=== PATIENT | male | born 2000 | race Two or more races ===

== ENCOUNTER → 2024-11-02 | Outpatient (CLI) | payer OTHER, SELFPAY ==
--- NOTE | 2024-11-02 09:41 | XR_ITS ---
Examination: Lumbar spine, 5 views Technique: Lumbar spine AP, lateral, coned lateral lower lumbar spine, bilateral obliques 5 views Exam date and time: November 02, 2024 0944 hours INDICATIONS: Lifting injury to lower back one month ago lower back pain FINDINGS: Short angle lower lumbar levoscoliosis 11 degrees Mild diffuse facet arthropathy Grade 2 spondylolisthesis L5 on S1 with advanced degenerative disc disease at the L5-S1 level No lumbar fracture IMPRESSION: Advanced degenerative disc disease L5-S1 Grade 2 spondylolisthesis L5 on S1 produces severe spinal stenosis at this level
--- NOTE | 2024-11-02 09:41 | XR_ITS ---
Examination: Knee, left , 3 views Technique: Knee AP, lateral, oblique 3 views Date and time of exam: November 02, 2024 0944 hours INDICATIONS: Left knee pain one month. FINDINGS: Mild tricompartment osteoarthritis No fracture or dislocation No foreign body IMPRESSION: Mild tricompartment osteoarthritis
--- NOTE | 2024-11-02 09:41 | XR_ITS ---
Examination:Left hip AP, lateral, AP pelvis 3 views Technique: Hip AP lateral, AP pelvis, 3 views Exam date and time:November 02, 2024 0944 hours Comparison 01/12/2024 INDICATIONS: Left hip pain one month. FINDINGS: No left hip fracture or dislocation No significant hip joint narrowing Bones of the pelvis right hip intact IMPRESSION: No left hip fracture or dislocation No significant arthritic change.
== END | disposition home or self-care (01) ==
PROVIDERS: Referring Provider Family Medicine; Visit Provider Family Medicine
DX: M17.12 Unilateral primary osteoarthritis, left knee (principal); M51.370 Other intervertebral disc degeneration, lumbosacral region with discogenic back pain only; M43.17 Spondylolisthesis, lumbosacral region; M48.07 Spinal stenosis, lumbosacral region; S33.5XXD Sprain of ligaments of lumbar spine, subsequent encounter; S73.102D Unspecified sprain of left hip, subsequent encounter; S83.8X2D Sprain of other specified parts of left knee, subsequent encounter; X58.XXXD Exposure to other specified factors, subsequent encounter
CPT/HCPCS: 72110; 73502; 73562

== ENCOUNTER 2024-11-10 20:21 | Emergency (ER) | payer MEDICAID, SELFPAY ==
[2024-11-10 20:49] VITALS: PULSE 110; RESP 20; O2SAT 96; BMI 55.7
[2024-11-10 20:58] VITALS: BP 149/96; PULSE 87; RESP 20; TEMP 37; O2SAT 95
--- NOTE | 2024-11-10 20:59 | XR_ITS ---
Examination: PA chest single view Technique whereby PA chest single view Date and time: November 10, 2024 2104 hours INDICATIONS: Shortness of chest pain today. FINDINGS: Poor inspiratory effort. Normal heart size No pneumonia or pulmonary edema IMPRESSION: Poor inspiratory effort chest x-ray
--- NOTE | 2024-11-10 21:30 | PD.EDSOB ---
ED SOB =RME/HPI General Chief Complaint: Shortness of Breath/Dyspnea Stated Complaint: ANXIETY Time Seen by Provider: 11/10/24 20:56 Arrival date/time: 11/10/24 20:21 This is a case of 24-year-old male who came in in the emergency room due to palpitation after drinking coffee with mild shortness of breath due to the symptoms today patient had a panic attack thus decided to start consult here in the emergency room patient denies any suicidal or homicidal ideation denies any hallucination denies depression Limitations: no limitations Related Data Previous Rx's ?Medication ?Instructions ?Recorded meloxicam 7.5 mg tablet 7.5 mg PO QDAY #10 tabs 11/08/23 hydroxyzine pamoate 25 mg capsule 25 mg PO BID PRN anxiety #10 caps 11/10/24 Allergies Allergy/AdvReac Type Severity Reaction Status Date / Time No Known Allergies Allergy Verified 11/10/24 20:49 Review of Systems Review of Systems Systems Reviewed: All systems reviewed, normal except as documented Constitutional Constitutional: Reports system reviewed and no additional complaints, except as documented, Reports as per HPI and Denies snoring Cardiovascular Cardiovascular: Reports system reviewed and no additional complaints, except as documented, Reports as per HPI, Denies acrocyanosis, Denies chest pain, Denies chest pain at rest, Denies chest pain with activity, Denies claudication, Denies diaphoresis, Reports dyspnea, Denies dyspnea on exertion, Denies edema, Denies irregular heart rhythm, Denies leg edema, Denies leg ulcers, Denies lightheadedness, Denies orthopnea, Denies palpitations, Denies paroxysmal nocturnal dyspnea, Denies pedal edema, Denies radiating jaw, neck or arm pain, Reports rapid heart rate, Denies slow heart rate and Denies syncope Respiratory Respiratory: Reports system reviewed and no additional complaints, except as documented, Denies change in phlegm color, Denies chest congestion, Denies cough, Reports dyspnea, Denies dyspnea on exertion, Denies excessive phlegm production, Denies hemoptysis, Denies pain on inspiration, Denies pain with cough, Denies snoring, Denies stridor and Denies wheezing Gastrointestinal Gastrointestinal: Reports system reviewed and no additional complaints, except as documented and Reports as per HPI Genitourinary Genitourinary: Reports system reviewed and no additional complaints, except as documented and Reports as per HPI Musculoskeletal Musculoskeletal: Reports system reviewed and no additional complaints, except as documented and Reports as per HPI Neurologic Neurologic: Reports system reviewed and no additional complaints, except as documented, Reports as per HPI and Denies syncope Endocrine Endocrine: Denies palpitations Allergic/Immunologic Allergic/Immunologic: Denies wheezing Past Medical History Past Medical History CARDIAC: Negative Congestive Heart Failure RESPIRATORY: Negative Chronic Obstructive Pulmonary Disease (COPD) GENITOURINARY: Negative Renal Disease ENDOCRINE: Negative Diabetes Mellitus Type 1 or Diabetes Mellitus Type 2 Social History SMOKING STATUS: Former smoker ED Exam General Limitations: Present no limitations General appearance: Present alert and in no apparent distress; Absent appears intoxicated, anxious, lethargic, obtunded, in distress or obese Head Head exam: Present atraumatic Eye Eye exam: Present normal appearance, PERRL and EOMI ENT ENT exam: Present normal exam, normal oropharynx and mucous membranes moist Neck Neck exam: Present normal inspection, full ROM and trachea midline; Absent tenderness, meningismus or lymphadenopathy Chest Chest inspection: Present normal inspection and symmetric chest wall rise; Absent tenderness, rash or abscess Respiratory Respiratory exam: Present normal lung sounds bilaterally; Absent respiratory distress, wheezes, stridor, accessory muscle use or prolonged expiratory phase Cardiovascular Cardiovascular exam: Present regular rate, normal rhythm and normal heart sounds; Absent bradycardia, tachycardia, irregular rhythm, systolic murmur or diastolic murmur Abdominal Exam Abdominal exam: Present soft and normal bowel sounds; Absent distention, tenderness, guarding, rebound, rigidity, diminished bowel sounds or hyperactive bowel sounds Extremities Exam Extremities exam: Present normal inspection and full ROM Back Exam Back exam: Present normal inspection and full ROM Neurological Exam Neurological exam: Present alert, oriented X3, CN II-XII intact, normal gait and reflexes normal; Absent motor sensory deficit Psychiatric Psychiatric exam: Present normal affect, normal mood and anxious; Absent depressed, agitated, flat affect, manic, homicidal ideation, suicidal ideation or other Skin Skin exam: Present warm, dry, intact and normal color Course Quality Measures none Orders Category Date Time Status EKG (ED ONLY) *Do not use* NOW Care 11/10/24 20:59 Completed EKG (ED Only) Stat Exams 11/10/24 20:59 Ordered XR chest 1V portable Stat Exams 11/10/24 20:59 Completed BNP [B-Type Natriuretic Peptide] Stat Lab 11/10/24 21:46 Completed CBC Stat Lab 11/10/24 21:46 Completed CMP [Comprehensive Metabolic Panel] Stat Lab 11/10/24 21:46 Completed Drug Screen,Urine Stat Lab 11/10/24 22:17 Received TSH [Thyroid Stimulating Hormone] Stat Lab 11/10/24 21:46 Completed Troponin I Stat Lab 11/10/24 21:46 Completed Urinalysis Stat Lab 11/10/24 22:17 Completed LORazepam [Ativan] Med 11/10/24 23:29 Discontinued 1 mg PO X1 ONE Vital Signs Vital signs: Vital Signs Temperature 98.6 F 11/10/24 20:58 Pulse Rate 87 11/10/24 20:58 Respiratory Rate 20 11/10/24 20:58 Blood Pressure 149/96 H 11/10/24 20:58 Pulse Oximetry (%) 95 11/10/24 20:58 Oxygen Delivery Method Room Air 11/10/24 20:58 Patient is afebrile not tachycardic not tachypneic BP stable oxygen saturation is 95% in room Shortness of Breath / Dyspnea MDM Narrative MDM Narrative:: This is a case of 24-year-old male who came in in the emergency room due to palpitation after drinking coffee with mild shortness of breath due to the symptoms today patient had a panic attack thus decided to start consult here in the emergency room patient denies any suicidal or homicidal ideation denies any hallucination denies depression physical examination patient is awake alert oriented not in distress nontoxic looking HEENT exam is normal and unremarkable lung sounds clear no crackles no rales no retraction no stridor heart normal rate regular rhythm no murmur rest of the physical examination neurological exam is normal and unremarkable patient is mildly anxious but no suicidal homicidal ideation no hallucination blood test showed no leukocytosis no anemia kidney and liver function is normal no electrolyte imbalance patient troponin BNP is normal patient EKG 83 sinus rhythm chest x-ray is normal patient do not wait the result of his drug screen patient was given Ativan here in the emergency room patient was observed after 30 minutes patient condition markedly improved and resolved patient denies any more palpitation no shortness of breath patient will follow-up with PCP in 2 days for reevaluation and to be referred to cattle trader for palpitation for palpable echocardiogram stress test and Holter monitor he needs to see also psychiatry psychologist for anxiety at this point patient is stable to be discharge Patient was discharged with comfortable condition walking with stable gait. Patient verbalized no further complains explained diagnosis and answered patient question. Patient is comfortable with the proposed management plan including the need to follow up with his/her primary care physician and any specialist if applicable Discussed patient for any urgent condition or worsening sx, He/She needed to go to emergency room immediately or call 911. Patient acknowledge the responsibility to follow up as instructed and to monitor her/his symptoms. For any persistence of the symptoms for more than 3-5 days return precaution advised. Discussed the result of the test and was given printed discharge instruction Patient data External records reviewed:: [facility] previous records Clinical information provided by:: patient Social determinants that could affect healthcare access:: none Patient has the following chronic illnesses:: None How is presenting disease/condition affected by chronic disease/condition?: no chronic disease Evaluation data The following diagnostics were reviewed and interpreted by me:: lab results, radiology exam(s), EKG tracing(s) and other (specify) (Reviewed) Lab and/or radiology exams considered but not ordered:: Reviewed Interpretation Summary: Reviewed Medications / Prescriptions Medications or Prescriptions considered but not ordered:: Given Medication administrations:: Medication Administration History Discontinued Medications Lorazepam (Lorazepam 0.5 Mg Tablet) 1 mg PO X1 ONE Stop: 11/10/24 23:30 Last Admin: 11/11/24 00:08 Dose: 1 mg Documented By: KF Given Consultations Consultation(s) initiated? (list below): No Diagnosis Shortness of Breath Differential Diagnosis: other (Palpitation anxiety) Most likely diagnosis given after review of the tests above:: Palpitation anxiety Admission Indicated Admission indicated?: not indicated Explain why admission is indicated or not indicated:: Not indicated Admission Request Was there a request for admission?: No Admission Attestation Admission request attestation: Not indicated Disposition Plan Disposition Plan: Discharge Discharge Attestation Discharge Attestation: The patient and all family members were given an opportunity to ask questions and understood the discharge instructions. Discharge instructions specifically effects, indications for sooner follow up or return to the emergency department, and the expected course of current diagnosis. Patient condition: Stable Discharge Plan Plan Patient Disposition: HOME (Self Care) Patient condition on transfer: Stable Prescriptions/Referrals Prescriptions/Med Rec: New hydroxyzine pamoate 25 mg capsule 25 mg PO BID PRN (Reason: anxiety) Qty: 10 0RF No Action meloxicam 7.5 mg tablet 7.5 mg PO QDAY Qty: 10 0RF Referrals: Bob Oreilly MD [Primary Care Provider] - In 1 week Problem List Clinical Impression: Palpitation, Anxiety Patient/Caregiver Discharge Instructions Education Materials: Treating Anxiety Disorders ..., ED Palpitations Additional Instructions: Follow-up with your primary care physician in 2 days for reevaluation and to be referred to cattle trader for further evaluation and treatment of palpitation for possible echocardiogram stress test and Holter monitor you need also to be referred to psychologist psychiatrist for your anxiety for any recurrence worsening symptoms or any emergent concern return to the emergency room immediately or call 911 take your medication as directed keep hydrated Print Language: Ukrainian Stand Alone Forms: Senia Award Info., Patient Portal Info Letter SARAI/MARISOL Supervising Physician SARAI/MARISOL Supervising Physician: dr baptiste
[2024-11-10 22:03] LABS: Basophils # (Auto) 0.0 Thou/mm3 (0.0-0.2); Basophils % (Auto) 0 % (0-2.5); Eosinophils # (Auto) 0.1 Thou/mm3 (0.0-0.5); Eosinophils % (Auto) 1 % (0-10); Hematocrit 45.0 % (41.0-53.0); Hemoglobin 14.8 g/dL (13.5-16.0); Immature Granulocytes Auto 0.02 Thou/mm3 (0.00-0.00); Lymphocytes # (Auto) 3.5 Thou/mm3 (1.0-4.8); Lymphocytes % (Auto) 32 % (10-50); Mean Corpuscular HGB Conc 32.9 g/dl (31.0-37.0); Mean Corpuscular Hemoglobin 29.5 pg (25.0-35.0); Mean Corpuscular Volume 90 fL (80-100); Monocytes # (Auto) 0.7 Thou/mm3 (0.0-0.8); Monocytes % (Auto) 7 % (0-12); Neutrophils # (Auto) 6.6 Thou/mm3 (1.8-7.7); Neutrophils % (Auto) 60 % (37-80); Nucleated Red Blood Cell # 0.00 Thou/mm3 (0.00-0.00); Nucleated Red Blood Cell % 0 /100 WBC (0); Platelet Count 285 Thou/mm3 (140-440); RDW Standard Deviation 40.8 fL (35.1-43.9); Red Blood Count 5.01 Miln/mm3 (4.50-5.90); White Blood Count 10.9 Thou/mm3 (3.8-10.6)
[2024-11-10 22:28] LABS: B-Type Natriuretic Peptide < 20 pg/mL (0-100)
[2024-11-10 22:31] LABS: Alanine Aminotransferase 19 U/L (10-49); Albumin, Serum 5.1 gm/dL (3.5-5.0); Albumin/Globulin Ratio 1.8 (1.2-2.2); Alkaline Phosphatase 55 U/L (46-116); Anion Gap 10 (7-16); Aspartate Amino Transferase 16 U/L (0-34); BUN/Creatinine Ratio 9 Ratio (12-20); Bilirubin,Total 0.3 mg/dL (0.3-1.2); Blood Urea Nitrogen 11 mg/dL (9-23); Calcium 10.4 mg/dL (8.3-10.6); Calcium (Corrected) 10.4 mg/dL (8.5-10.1); Carbon Dioxide 26.9 mMol/L (20.0-31.0); Chloride 105 mMol/L (98-107); Creatinine (Component) 1.2 mg/dL (0.6-1.3); Estimated Creatinine Clearance 155.4 mL/min (>60); Globulin 2.8 gm/dL (2.3-3.5); Glucose 104 mg/dL (74-106); Osmolality,Calculated 282 (275-295); Potassium 4.2 mMol/L (3.4-5.1); Sodium 142 mMol/L (136-145); Thyroid Stimulating Hormone 0.98 uIU/mL (0.55-4.78); Total Protein 7.9 gm/dL (5.7-8.2); Troponin I < 0.002 ng/mL (0.0-0.045); eGFR > 60 See Note
[2024-11-10 22:49] LABS: Collection Type, Urine Voided; Squamous Epithelial Cell,Urine 0 /hpf (0-5)
[2024-11-10 22:55] LABS: Bilirubin,Urine Negative (Negative); Blood,Urine Negative (Negative); Clarity,Urine Clear (Clear/Hazy); Color,Urine Yellow (Lt Yel-Yel); Glucose, Urine Negative (Negative); Ketones,Urine Trace (Negative); Leukocyte Esterase,Urine Negative (Negative); Nitrite,Urine Negative (Negative); PH,Urine 5.5 (5.0-7.0); Protein,Urine Trace (Neg - Trace); RBC,Urine 2 /hpf (0-3); Specific Gravity,Urine 1.040 (1.001-1.035); Urobilinogen,Urine 2.0 mg/dL (0.0-1.0); WBC,Urine < 1 /hpf (0-5)
[2024-11-11 00:44] LABS: Amphetamine/Methamp Scrn,U Negative (Negative); Barbiturate Screen,Urine Negative (Negative); Benzodiazepines Screen,Urine Negative (Negative); Benzoylecgonine Screen, Ur Negative (Negative); Fentanyl Screen,Urine Negative (Negative); Opiate Screen,Urine Negative (Negative); THC Screen,Urine Negative (Negative)
== END 2024-11-11 00:13 | disposition home or self-care (01) ==
PROVIDERS: Nurse Practitioner Family; Emergency Provider Emergency Medicine; PCP Family Medicine
DX: F41.9 Anxiety disorder, unspecified (principal); R00.2 Palpitations; R07.9 Chest pain, unspecified
CPT/HCPCS: 36415; 71045; 80053; 80307; 81001; 83880; 84443; 84484; 85025; 93005; 99283; A9270

== ENCOUNTER 2025-03-20 09:31 | Emergency (ER) | payer MEDICAID, SELFPAY ==
[2025-03-20 09:32] VITALS: BMI 59.5
[2025-03-20 09:43] VITALS: BP 137/91; PULSE 99; RESP 18; TEMP 36.7; O2SAT 97
--- NOTE | 2025-03-20 09:46 | PD.EDEAR ---
ED Ear RME/HPI General Chief complaint: Ear Stated complaint: R EAR ACHE X4 DAYS Time Seen by Provider: 03/20/25 09:33 Arrival date/time: 03/20/25 09:31 24-year-old male presents to the emergency department today for complaints of right ear pain ongoing x 4 days patient reports he has seen his doctor they gave him a prescription but he has not taken it as prescribed Limitations: no limitations Related Data Previous Rx's ?Medication ?Instructions ?Recorded meloxicam 7.5 mg tablet 7.5 mg PO QDAY #10 tabs 11/08/23 hydroxyzine pamoate 25 mg capsule 25 mg PO BID PRN anxiety #10 caps 11/10/24 cefdinir 300 mg capsule 300 mg PO BID 7 days #14 caps 03/20/25 ibuprofen 800 mg tablet 800 mg PO TID PRN pain #30 tabs 03/20/25 ofloxacin 0.3 % ear drops 10 drop otic (ear) QDAY 10 days 03/20/25 #10 mL Allergies Allergy/AdvReac Type Severity Reaction Status Date / Time No Known Allergies Allergy Verified 03/20/25 09:35 Review of Systems Review of Systems Systems Reviewed: All systems reviewed, normal except as documented Constitutional Constitutional: Reports system reviewed and no additional complaints, except as documented, Denies fever(s) and Denies headache(s) Eyes Eyes: Reports system reviewed and no additional complaints, except as documented and Denies blurry vision ENT Ears, Nose, Mouth, and Throat: Reports system reviewed and no additional complaints, except as documented, Reports ear discharge, Reports otalgia, Denies headache(s), Denies nasal congestion and Denies nasal discharge Cardiovascular Cardiovascular: Reports system reviewed and no additional complaints, except as documented, Denies chest pain and Denies dyspnea Respiratory Respiratory: Reports system reviewed and no additional complaints, except as documented, Denies chest congestion, Denies cough and Denies dyspnea Gastrointestinal Gastrointestinal: Reports system reviewed and no additional complaints, except as documented and Denies abdominal pain Integumentary/Breasts Skin/Breast: Reports system reviewed and no additional complaints, except as documented and Denies rash Neurologic Neurologic: Reports system reviewed and no additional complaints, except as documented, Reports as per HPI and Denies headache(s) Past Medical History Past Medical History CARDIAC: Negative Congestive Heart Failure RESPIRATORY: Negative Chronic Obstructive Pulmonary Disease (COPD) GENITOURINARY: Negative Renal Disease ENDOCRINE: Negative Diabetes Mellitus Type 1 or Diabetes Mellitus Type 2 Social History SMOKING STATUS: Never smoker ED Exam General Limitations: Present no limitations General appearance: Present alert and in no apparent distress Head Head exam: Present atraumatic Eye Eye exam: Present normal appearance, PERRL and EOMI ENT ENT exam: Present normal oropharynx and mucous membranes moist Expanded ENT Exam TM/Canal exam: Right TM: erythema, canal discharge and canal tenderness Neck Neck exam: Present normal inspection, full ROM and trachea midline Chest Chest inspection: Present normal inspection and symmetric chest wall rise Respiratory Respiratory exam: Present normal lung sounds bilaterally Cardiovascular Cardiovascular exam: Present regular rate, normal rhythm and normal heart sounds Abdominal Exam Abdominal exam: Present soft and normal bowel sounds Extremities Exam Extremities exam: Present normal inspection and full ROM Back Exam Back exam: Present normal inspection and full ROM Neurological Exam Neurological exam: Present alert, oriented X3 and CN II-XII intact Psychiatric Psychiatric exam: Present normal affect and normal mood Skin Skin exam: Present warm, dry, intact and normal color Course Quality Measures none Orders Category Date Time Status Lidocaine 1% 20 ml [Xylocaine 1% 20 ML] Med 03/20/25 09:44 Discontinued 2.1 ml INFL X1 ONE cefTRIAXone [Rocephin] Med 03/20/25 09:44 Discontinued 1,000 mg IM X1 ONE Vital Signs Vital signs: Vital Signs Temperature 98.1 F 03/20/25 09:43 Pulse Rate 99 03/20/25 09:43 Respiratory Rate 18 03/20/25 09:43 Blood Pressure 137/91 H 03/20/25 09:43 Pulse Oximetry (%) 97 03/20/25 09:43 Oxygen Delivery Method Room Air 03/20/25 09:43 O2 saturation 97% room air with normal limits Ear Patient data External records reviewed:: [facility] previous records Clinical information provided by:: patient Social determinants that could affect healthcare access:: none Patient has the following chronic illnesses:: none How is presenting disease/condition affected by chronic disease/condition?: no chronic disease Evaluation data The following diagnostics were reviewed and interpreted by me:: other (specify) (N/A) Lab and/or radiology exams considered but not ordered:: Considered and not ordered Interpretation Summary: N/A Medications / Prescriptions Medications or Prescriptions considered but not ordered:: Given Medication administrations:: Medication Administration History Discontinued Medications Ceftriaxone Sodium (Ceftriaxone Sod Inj 1,000 Mg Vial) 1,000 mg IM X1 ONE Stop: 03/20/25 09:45 Last Admin: 03/20/25 09:50 Dose: 1,000 mg Documented By: Lidocaine HCl (Lidocaine Hcl 1% 20 Ml Vial) 2.1 ml INFL X1 ONE Stop: 03/20/25 09:45 Last Admin: 03/20/25 09:50 Dose: 2.1 ml Documented By: Given Consultations Consultation(s) initiated? (list below): No Diagnosis Ear Differential Diagnosis: otitis externa and otitis media Most likely diagnosis given after review of the tests above:: Otitis externa right Admission Indicated Admission indicated?: not indicated Admission Request Was there a request for admission?: No Disposition Plan Disposition Plan: Discharge Discharge Attestation Discharge Attestation: The patient and all family members were given an opportunity to ask questions and understood the discharge instructions. Discharge instructions specifically effects, indications for sooner follow up or return to the emergency department, and the expected course of current diagnosis. Patient condition: Stable Medical Decision Making MDM Narrative MDM Narrative: 24-year-old male presents to the emergency department today for complaints of right ear pain ongoing x 4 days patient reports he has seen his doctor they gave him a prescription but he has not taken it as prescribed On exam patient well-appearing does not appear ill or toxic no acute distress Patient discharged home in no distress to follow-up with primary care doctor in the next 24 to 48 hours and for any worsening symptoms to return to the ER immediately Differential Diagnosis Differential Diagnosis: Otitis media, otitis externa Medical Records Medical records reviewed: Yes I reviewed the patient's medical records. Discharge Plan Plan Patient Disposition: HOME (Self Care) Discharge Disposition comment: Stable Prescriptions/Referrals Prescriptions/Med Rec: New ibuprofen 800 mg tablet 800 mg PO TID PRN (Reason: pain) Qty: 30 0RF ofloxacin 0.3 % drops 10 drop otic (ear) QDAY 10 Days Qty: 10 0RF cefdinir 300 mg capsule 300 mg PO BID 7 Days Qty: 14 0RF No Action meloxicam 7.5 mg tablet 7.5 mg PO QDAY Qty: 10 0RF hydroxyzine pamoate 25 mg capsule 25 mg PO BID PRN (Reason: anxiety) Qty: 10 0RF Problem List Clinical Impression: Otitis externa, Noncompliance with medication regimen Patient/Caregiver Discharge Instructions Education Materials: Anatomy of the Ear Additional Instructions: Please follow up with your primary care doctor in the next 24-48hrs for any worsening symptoms return here immediately Print Language: Anguillan Stand Alone Forms: Senia Award Info., Patient Portal Info Letter PA/APPLICATION SUPPORT CONSULTANT Supervising Physician PA/APPLICATION SUPPORT CONSULTANT Supervising Physician: Dr. Nina
[2025-03-20] MEDS: LIDOCAINE HCL 1% 20 ML VIAL 2.1 ML INFL (09:50)
[2025-03-20] MEDS: cefTRIAXone SOD INJ 1,000 MG VIAL 1000 MG IM (09:50)
== END 2025-03-20 10:00 | disposition home or self-care (01) ==
LOC: SERX 10:05
PROVIDERS: Emergency Provider Nurse Practitioner Primary Care; PCP Family Medicine
DX: H60.91 Unspecified otitis externa, right ear (principal)
CPT/HCPCS: 96372; 99282; J0696; J3490